=== PATIENT | male | born 1955 | race Caucasian/White ===

== ENCOUNTER 2016-10-01 19:28 | Inpatient (IN) | payer BC, OTHER ==
[~2016-10-01] VITALS: Ht 185.4 cm; Wt 105.9 kg
[2016-10-01] MEDS ORDERED: VANCOMYCIN IV 1,000 MG in IV DEXTROSE 5% 250 ML IV ONE (20:00)
[2016-10-01] MEDS ORDERED: IV NORMAL SALINE 1000 ML BAG IV ONE (20:00)
[2016-10-01] MEDS ORDERED: METRONIDAZOLE 500 MG/NS 100 ML PIGGYBACK IV ONE (20:00)
[2016-10-01] MEDS ORDERED: PIPERACILLIN SODIUM/TAZOBACTAM 3.375 G in IV DEXTROSE 5% 50 ML IV ONE (20:00)
[2016-10-01] MEDS ORDERED: MORPHINE SULFATE 2 MG/1 ML DISP.SYRIN IV ONE (20:00)
[2016-10-01] MEDS ORDERED: ONDANSETRON 4 MG/2 ML VIAL IV ONE ×2 (20:00→22:30)
[2016-10-01] MEDS ORDERED: MORPHINE SULFATE 2 MG/1 ML DISP.SYRIN ONE (20:24)
[2016-10-01] MEDS ORDERED: ONDANSETRON 4 MG/2 ML VIAL ONE ×2 (20:24→22:44)
[2016-10-01] MEDS ORDERED: PIPERACILLIN/TAZOBACTAM/D5W 50 ML IV ONE (20:24)
[2016-10-01 20:25] LABS: CALCIUM 9.9 mg/dL (8.5-10.1); CREATININE 1.2 mg/dL (0.6-1.3); POTASSIUM 4.2 mmol/L (3.5-5.1)
[2016-10-01 20:31] LABS: HEMATOCRIT 43.6 % (40.0-50.0); HEMOGLOBIN 14.5 g/dL (14.0-18.0); MEAN CORPUSCULAR HEMOGLOBIN 30.6 uug (27.0-31.0); MEAN CORPUSCULAR HGB CONC 33 g/dL (32.0-37.0); MEAN CORPUSCULAR VOLUME 91.8 fL (82.0-92.0); PLATELET COUNT (AUTO) 226 K/uL (150-450); RED BLOOD CELL COUNT(AUTO) 4.75 MIL/uL (4.70-6.10); RED CELL DISTRIBUTION WIDTH 12.6 % (11.5-14.5); WHITE BLOOD COUNT (AUTO) 15.3 K/uL (4.0-11.2)
[2016-10-01 20:32] LABS: ALBUMIN 3.7 g/dL (3.4-5.0); BILIRUBIN,DIRECT 0.1 mg/dL (0.0-0.2); BILIRUBIN,TOTAL 0.6 mg/dL (0.2-1.0); TOTAL PROTEIN, SERUM 7.9 g/dL (6.4-8.2); TROPONIN I < 0.017 ng/mL (0.00-0.056)
[2016-10-01] MEDS ORDERED: VANCOMYCIN IV 200 ML ONE (20:37)
[2016-10-01 20:43] LABS: BAND % (MANUAL) 3 % (0-10); LYMPHOCYTES % (MANUAL) 10 % (20-40); MONOCYTES % (MANUAL) 5 % (2-10); NEUTROPHILS % (MANUAL) 82 % (42-75); PLATELET ESTIMATE ADEQUATE
[2016-10-01 20:47] LABS: LACTIC ACID 1.1 mmol/L (0.4-2.0)
[2016-10-01] MEDS ORDERED: IV NORMAL SALINE 250 ML IV ONE (20:58)
[2016-10-01] MEDS ORDERED: NORMAL SALINE FLUSH 10 ML DISP.SYRIN ONE (20:58)
[2016-10-01] MEDS ORDERED: IOHEXOL 300MG/ML 100 ML INFUS..BTL ONE (20:58)
[2016-10-01] MEDS ORDERED: HYDROMORPHONE 1 MG/1 ML DISP.SYRIN ONE ×2 (21:10→22:44)
[2016-10-01] MEDS ORDERED: HYDROMORPHONE 1 MG/1 ML DISP.SYRIN IV ONE ×3 (21:15→22:45)
[2016-10-01] MEDS ORDERED: METRONIDAZOLE 500 MG/NS 100ML 100 ML IV ONE (21:33)
[2016-10-01 23:26] VITALS: BP 141/84
[2016-10-02] VITALS (7 sets, daily range): BP systolic 108–130; BP diastolic 61–87
[2016-10-02] MEDS ORDERED: ONDANSETRON 4 MG/2 ML VIAL IV PRN
[2016-10-02] MEDS ORDERED: ACETAMINOPHEN 650 MG SUPP.RECT RC PRN
[2016-10-02] MEDS: IV D5 1/2 NS 1000 ML 1,000 ML IV PRN ×2 (00:01→17:25)
[2016-10-02] MEDS ORDERED: PIPERACILLIN/TAZO 4.5 GM VIAL IV ONE (00:16)
[2016-10-02] MEDS: LORAZEPAM 2 MG/1 ML VIAL IV PRN ×4 (00:18→21:38)
[2016-10-02] MEDS ORDERED: LORAZEPAM 2 MG/1 ML VIAL ONE (00:19)
[2016-10-02 01:03] LABS: *BILIRUBIN,URIN NEGATIVE (NEGATIVE); *BLOOD, URINE Trace-intact (NEGATIVE); *COLOR,URINE YELLOW (YELLOW); *KETONES,URINE NEGATIVE (NEGATIVE); *UROBILINOGEN,URINE 0.2 E.U./dl (NORMAL); LEUKOCYTE ESTERASE ,URINE NEGATIVE (NEGATIVE); NITRITE, URINE NEGATIVE (NEGATIVE); PH,URINE 5.5 (5.0-8.0); UGLUCOSE NEGATIVE (NEGATIVE)
[2016-10-02 01:12] LABS: *CLARITY,URINE HAZY (CLEAR); *PROTEIN,URINE 3+ (NEGATIVE)
[2016-10-02 01:15] LABS: BACTERIA,URINE NONE SEEN /HPF (NONE SEEN); SQUAMOUS EPITHELIAL CELL,UR NONE SEEN /HPF (NONE SEEN); WBC,URINE 0-3 /HPF (0-3)
[2016-10-02] MEDS ORDERED: PIPERACILLIN SODIUM/TAZOBACTAM 4.5 G in IV DEXTROSE 5% 50 ML IV SCH ×6 (04:00)
[2016-10-02] MEDS: PIPERACILLIN SODIUM/TAZOBACTAM 4.5 G in IV DEXTROSE 5% 50 ML IV SCH ×3 (05:14→21:25)
[2016-10-02] MEDS: MORPHINE SULFATE 2 MG/1 ML DISP.SYRIN IV PRN ×3 (05:15→11:45)
[2016-10-02] MEDS ORDERED: ONDANSETRON 4 MG/2 ML VIAL ONE (05:18)
[2016-10-02] MEDS ORDERED: MORPHINE SULFATE 2 MG/1 ML DISP.SYRIN ONE (05:18)
[2016-10-02 07:13] LABS: ALBUMIN 2.9 g/dL (3.4-5.0); BILIRUBIN,TOTAL 0.5 mg/dL (0.2-1.0); CALCIUM 8.6 mg/dL (8.5-10.1); CREATININE 1.1 mg/dL (0.6-1.3); MAGNESIUM 1.5 mg/dL (1.8-2.4); PHOSPHOROUS 3.6 mg/dL (2.5-4.9); POTASSIUM 3.9 mmol/L (3.5-5.1); TOTAL PROTEIN, SERUM 6.5 g/dL (6.4-8.2)
[2016-10-02 07:23] LABS: THYROID STIMULATING HORMONE 2.25 mIU/mL (0.358-3.740)
[2016-10-02 07:50] LABS: HEMATOCRIT 41.9 % (40.0-50.0); HEMOGLOBIN 13.8 g/dL (14.0-18.0); MEAN CORPUSCULAR HEMOGLOBIN 30.4 uug (27.0-31.0); MEAN CORPUSCULAR HGB CONC 33 g/dL (32.0-37.0); MEAN CORPUSCULAR VOLUME 92.2 fL (82.0-92.0); PLATELET COUNT (AUTO) 194 K/uL (150-450); RED BLOOD CELL COUNT(AUTO) 4.54 MIL/uL (4.70-6.10); RED CELL DISTRIBUTION WIDTH 12.5 % (11.5-14.5); WHITE BLOOD COUNT (AUTO) 11.9 K/uL (4.0-11.2)
[2016-10-02] MEDS: PANTOPRAZOLE SODIUM 40 MG VIAL IV SCH (09:13)
[2016-10-02 11:19] LABS: NEUTROPHILS % (AUTO) 80.6 % (38.5-71.5)
[2016-10-02 11:20] LABS: BASOPHILS % (AUTO) 0.2 % (0.0-2.0); EOSINOPHILS # (AUTO) 0.2 K/uL (0.0-0.7); EOSINOPHILS % (AUTO) 1.9 % (0.0-7.0); LYMPHOCYTES # (AUTO) 1.4 K/uL (0.8-4.8); LYMPHOCYTES % (AUTO) 12.7 % (20.5-51.5); MONOCYTES # (AUTO) 0.5 K/uL (0.1-1.30); MONOCYTES % (AUTO) 4.6 % (0.0-11.0); NEUTROPHILS # (AUTO) 9.2 K/uL (1.8-8.9)
[2016-10-02] MEDS: MAGNESIUM SULFATE/D5W 100 ML IV SCH ×2 (12:30→17:23)
[2016-10-02] MEDS: HYDROMORPHONE 1 MG/1 ML DISP.SYRIN IV PRN (13:01)
[2016-10-02] MEDS ORDERED: POLYMYXIN B SULFATE 500,000 UNITS, BACITRACIN 50,000 UNITS, NORMAL SALINE 20 ML MC ONE ×3 (14:30)
[2016-10-02] MEDS ORDERED: BUPIVACAINE/EPI PF 0.25% 30 ML VIAL ONE (14:37)
[2016-10-02] MEDS ORDERED: BUPIVACAINE 0.25% 30 ML VIAL ONE (14:37)
[2016-10-02] MEDS ORDERED: LIDOCAINE HCL 1% 20 ML VIAL ONE (14:39)
[2016-10-02] MEDS ORDERED: ONDANSETRON 4 MG/2 ML VIAL IV ONE (14:39)
[2016-10-02] MEDS ORDERED: PROPOFOL 200 MG/20 ML BOTTLE IV ONE (14:39)
[2016-10-02] MEDS ORDERED: SEVOFLURANE 250 ML BOTTLE IH ONE (14:39)
[2016-10-02] MEDS ORDERED: DEXAMETHASONE SOD PHOSPHATE 4 MG INJ IV ONE (14:39)
[2016-10-02] MEDS ORDERED: KETOROLAC TROMETHAMINE 30 MG INJ IM ONE (14:40)
[2016-10-02] MEDS ORDERED: LIDOCAINE HCL 1% 20 ML VIAL MC ONE (14:40)
[2016-10-02] MEDS ORDERED: EPHEDRINE SULFATE 50 MG/ML AMPUL MC ONE (14:40)
[2016-10-02] MEDS ORDERED: IV LACTATED RINGERS SOLUTION 1,000 ML BAG IV ONE (14:41)
[2016-10-02] MEDS ORDERED: FENTANYL CITRATE 100 MCG/2 ML AMPUL ONE (14:55)
[2016-10-02] MEDS ORDERED: MIDAZOLAM HCL 2 MG/2 ML VIAL ONE (14:55)
[2016-10-03 04:29] VITALS: BP 109/63
[2016-10-03] MEDS: PIPERACILLIN SODIUM/TAZOBACTAM 4.5 G in IV DEXTROSE 5% 50 ML IV SCH (06:29)
[2016-10-03] MEDS: PANTOPRAZOLE SODIUM 40 MG VIAL IV SCH (09:56)
[2016-10-03 10:08] LABS: CREATININE 1.3 mg/dL (0.6-1.3)
[2016-10-03] MEDS: HYDROMORPHONE 1 MG/1 ML DISP.SYRIN IV PRN (11:05)
[2016-10-03 11:07] VITALS: BP 146/93
[2016-10-03] MEDS ORDERED: CEPH-570 PO (11:47)
[2016-10-03] MEDS ORDERED: HYDR-552 PO (11:47)
[2016-10-03] MEDS ORDERED: NEOMY/BACITRAC/POLYMI OINT 28.35 GM TUBE TOP SCH (12:30)
== END 2016-10-03 13:30 | disposition home or self-care (01) | DRG 349 ==
LOC: ER 19:30 → TELE 23:01 → MED 10-02 10:18
PROVIDERS: ADMIT Internal Medicine; ATTEND Internal Medicine
PROC: 0H99XZZ Drainage of Perineum Skin, External Approach (ICD-10-PCS; 2016-10-02)
PROC: 0D9QXZZ Drainage of Anus, External Approach (ICD-10-PCS; principal; 2016-10-02 14:56)
DX: K61.0 Anal abscess (principal); D72.829 Elevated white blood cell count, unspecified; F17.210 Nicotine dependence, cigarettes, uncomplicated; E66.9 Obesity, unspecified; K40.90 Unilateral inguinal hernia, without obstruction or gangrene, not specified as recurrent; K57.30 Diverticulosis of large intestine without perforation or abscess without bleeding; M48.07 Spinal stenosis, lumbosacral region; M51.36 Other intervertebral disc degeneration, lumbar region; Y04.8XXS Assault by other bodily force, sequela; E27.9 Disorder of adrenal gland, unspecified; Z68.30 Body mass index [BMI] 30.0-30.9, adult
CPT/HCPCS: 36415; 70030-TC; 71010; 83605; 83690; 83735; 84100; 84443; 85025; 85610; 87040; 87070; 87075; 87077; 93005; A4649; A4663; C9113; J1100; J1170; J1885; J2060; J2250; J2270; J2405; J2543; J3010; J3370; J3475; J3490; J7030; J7050; J7060; J7120; Q9967